=== PATIENT | male | born 1955 | race Caucasian/White ===

== ENCOUNTER 2022-04-30 14:36 | Outpatient (CLI) | payer MEDICARE | END 2022-04-30 14:37 | disposition home or self-care (01) | LOC: RAD-FRANK 14:36 | PROVIDERS: ATTEND Nurse Practitioner Family | DX: R05.1 Acute cough (principal) | CPT/HCPCS: 71046 ==

== ENCOUNTER 2022-08-19 14:03 | Outpatient (CLI) | payer MEDICARE | END 2022-08-19 14:04 | disposition home or self-care (01) | LOC: RAD-FRANK 14:03 | PROVIDERS: ATTEND Nurse Practitioner Family | DX: R06.09 Other forms of dyspnea (principal) | CPT/HCPCS: 71046 ==

== ENCOUNTER 2023-06-04 15:00 | Outpatient (CLI) | payer MEDICARE, OTHER | END 2023-06-04 15:01 | disposition home or self-care (01) | LOC: RAD 15:00 | PROVIDERS: ATTEND Internal Medicine Critical Care Medicine | DX: R06.00 Dyspnea, unspecified (principal) | CPT/HCPCS: 71046 ==

== ENCOUNTER 2024-11-25 10:22 | Outpatient (CLI) | payer MEDICARE, OTHER | END 2024-11-25 10:23 | disposition home or self-care (01) | LOC: RAD 10:22 | PROVIDERS: ATTEND Internal Medicine Critical Care Medicine | DX: R06.00 Dyspnea, unspecified (principal); I51.7 Cardiomegaly | CPT/HCPCS: 71046 ==